=== PATIENT | male | born 1985 | race Caucasian/White ===

== ENCOUNTER 2021-01-10 13:06 | Emergency (ER) | payer OTHER ==
[2021-01-10 14:30] LABS: HEMOGLOBIN 14.8 gm/dl (14.0-17.5); RED BLOOD COUNT 4.89 M/UL (4.20-5.50); WHITE BLOOD COUNT 7.9 K/UL (4.5-11.0)
[2021-01-10 15:18] LABS: BUN/CREATININE RATIO 13 (0-10)
[2021-01-11 22:09] LABS: CHLAMYDIA TRACHOMATIS, NAA Negative (Negative); NEISSERIA GONORRHOEAE, NAA Negative (Negative)
== END 2021-01-10 16:20 | disposition home or self-care (01) ==
LOC: ER1 13:06
PROVIDERS: Physician Assistant
DX: N48.1 Balanitis (principal); F17.220 Nicotine dependence, chewing tobacco, uncomplicated; Z86.19 Personal history of other infectious and parasitic diseases
CPT/HCPCS: 71045; 80053; 81001; 82550; 82553; 85025; 99284